=== PATIENT | male | born 1985 | race American Indian/Alaskan Native ===

== ENCOUNTER 2019-07-25 17:26 | Emergency (ER) | payer OTHER ==
--- NOTE | 2019-07-25 17:55 | Event Note ---
ED Screening Note Date of service: 07/25/19 Time: 17:49 ED Screening Note: This is a 34 y.o. M. that presents to the ER with back pain and RUE pain. Patient states he was at work putting in a transmission when the strap broke causing it fall. The patient caught it and held it until coworkers got it off of him. States it landing on right bicep. Reports pain with movement of neck radiating down back. Patient states he was given blood pressure medication 1 year but never followed up. This initial assessment/diagnostic orders/clinical plan/treatment(s) is/are subject to change based on patients health status, clinical progression and re- assessment by fellow clinical providers in the ED. Further treatment and workup at subsequent clinical providers discretion. Patient/guardian urged not to elope from the ED as their condition may be serious if not clinically assessed and managed. Initial orders include: XR C-spine, right humerus, and labs
--- NOTE | 2019-07-25 18:45 | XRay Report ---
RIGHT HUMERUS 3 VIEWS INDICATION / CLINICAL INFORMATION: upper arm pain, injury. COMPARISON: None available. FINDINGS: Negative. Signer Name: Sukhdev Willett MD Signed: 07/25/2019 6:41 PM Workstation Name: [id number]
--- NOTE | 2019-07-25 18:50 | XRay Report ---
CERVICAL SPINE SERIES 4 VIEWS INDICATION: neck pain. COMPARISON: No relevant prior imaging study available. FINDINGS: No acute, displaced fracture or subluxation is seen. No significant prevertebral soft tissue swelling is seen. There are no degenerative changes. IMPRESSION: 1. No acute findings. Signer Name: Marciano Moore MD Signed: 07/25/2019 6:45 PM Workstation Name: [id number]
[2019-07-25] MEDS ORDERED: KETOROLAC 30 MG/1 ML INJ IM ONE (18:55)
[2019-07-25] MEDS ORDERED: oxyCODONE /ACETAMINOPHEN 5-325MG TAB PO ONE (18:55)
[2019-07-25] MEDS ORDERED: amLODIPine 5 MG TAB PO ONE (18:56)
--- NOTE | 2019-07-25 18:56 | Emergency Department Report ---
ED General Adult HPI - General Chief complaint: Back Pain/Injury Stated complaint: IBAN FELL ON PT Time Seen by Provider: 07/25/19 17:49 Source: patient, RN notes reviewed Mode of arrival: Wheelchair Limitations: No Limitations - History of Present Illness Initial comments: This is a 34-year-old gentleman who is not known to this provider previously. The patient is right-hand dominant, up-to-date with tetanus vaccinations. Patient works as an automotive painter. Patient reports that he was at work, working on a transmission. He reports that a supportive strap became loose, and the transmission partially got displaced from the car, the patient had to catch it with his right arm. The transmission slowly landed on his right bicep, and right anterior chest wall. He reports that he was gradually able to keep the transmission supported, his coworkers were able to help him placed in an assisted position. The object itself did not hit his head, neck, or back. He thinks he twisted his back while supporting the transmission. He has paraspinal back pain, right bicep pain, right pectoral pain. He has no midline neck pain. His pain is sharp and throbbing, achy, increases with palpation and decreases with rest. It does not radiate anywhere. He denies other injuries. He denies other complaints. He reports that he has not been on blood pressure medication for about a year. -: Sudden Location: chest, back, right, upper extremity Radiation: non-radiation Quality: aching Consistency: other Improves with: other Worsens with: other - Related Data Previous Rx's Medication Instructions Recorded Last Taken Type Acetaminophen [Non-Aspirin Extra 500 mg PO Q6HR PRN #30 tablet 07/25/19 Unknown Rx Strength] Amlodipine Besylate [Norvasc] 5 mg PO QDAY #30 tablet 07/25/19 Unknown Rx Ibuprofen [Motrin] 600 mg PO Q8H PRN #30 tablet 07/25/19 Unknown Rx Allergies Allergy/AdvReac Type Severity Reaction Status Date / Time No Known Allergies Allergy Unverified 07/25/19 17:35 ED Review of Systems ROS: Stated complaint: IBAN FELL ON PT Other details as noted in HPI Constitutional: denies: fever Eyes: denies: eye discharge ENT: denies: epistaxis Respiratory: denies: wheezing Cardiovascular: denies: syncope Gastrointestinal: denies: abdominal pain Musculoskeletal: back pain, arthralgia, myalgia Skin: other (contusion) Neurological: denies: weakness, numbness, paresthesias, confusion ED Past Medical Hx - Past Medical History Previous Medical History?: No - Surgical History Past Surgical History?: No - Social History Smoking Status: Never Smoker Substance Use Type: None - Medications Home Medications: Home Medications Medication Instructions Recorded Confirmed Last Taken Type Acetaminophen [Non-Aspirin Extra 500 mg PO Q6HR PRN #30 tablet 07/25/19 Unknown Rx Strength] Amlodipine Besylate [Norvasc] 5 mg PO QDAY #30 tablet 07/25/19 Unknown Rx Ibuprofen [Motrin] 600 mg PO Q8H PRN #30 tablet 07/25/19 Unknown Rx ED Physical Exam - General Limitations: No Limitations General appearance: alert, anxious, obese - Head Head exam: Present: atraumatic, normocephalic - Eye Eye exam: Present: normal appearance, EOMI. Absent: nystagmus - ENT ENT exam: Present: normal exam, normal orophraynx, mucous membranes moist, normal external ear exam - Neck Neck exam: Present: normal inspection, full ROM. Absent: tenderness, meningismus - Respiratory Respiratory exam: Present: normal lung sounds bilaterally. Absent: respiratory distress - Cardiovascular Cardiovascular Exam: Present: regular rate, normal rhythm, normal heart sounds. Absent: bradycardia, tachycardia, irregular rhythm, systolic murmur, diastolic murmur, rubs, gallop - GI/Abdominal GI/Abdominal exam: Present: soft. Absent: distended, tenderness, guarding, rigid, pulsatile mass - Rectal Rectal exam: Present: deferred - Extremities Exam Extremities exam: Present: full ROM, other (2+ pulses noted in the bilateral upper, lower extremities. There is no long bone tenderness. Musculoskeletal compartments are soft. The pelvis is stable.). Absent: normal inspection (there is a right upper extremity anterior bicipital ecchymosis. There is a right anterior pectoral muscle ecchymosis.), tenderness, pedal edema, calf tenderness - Back Exam Back exam: Present: normal inspection, full ROM, paraspinal tenderness. Absent: tenderness, CVA tenderness (R), CVA tenderness (L), muscle spasm, vertebral tenderness - Neurological Exam Neurological exam: Present: alert, oriented X3, other (there is no facial droop. The tongue is midline. Extraocular movements are intact bilaterally. Patient speaking in full complete sentences. Shoulder shrug is intact bilaterally. Hearing is grossly intact bilaterally. Visual acuity intact to finger counting and color perception at a close distance. 5/5 strength 4 extremities. Sensation intact to light touch in 4 extremities.). Absent: motor sensory deficit - Psychiatric Psychiatric exam: Present: normal affect, normal mood - Skin Skin exam: Present: warm ED Course Vital Signs 07/25/19 07/25/19 07/25/19 17:46 18:41 18:54 Temperature 98.8 F Pulse Rate 115 H Respiratory 20 20 Rate Blood Pressure 209/132 Blood Pressure 204/131 [Left] O2 Sat by Pulse 96 98 96 Oximetry 07/25/19 19:00 Temperature Pulse Rate 101 H Respiratory 13 Rate Blood Pressure 207/130 Blood Pressure [Left] O2 Sat by Pulse Oximetry - Reevaluation(s) Reevaluation #1: 07/25/19 19:22 Hypertension management is discussed with patient. We discussed diet and lifestyle modifications. However, the patient is interested in starting a medication. We will start low-dose amlodipine. ED Medical Decision Making - Lab Data Vital Signs 07/25/19 07/25/19 07/25/19 17:46 18:41 18:54 Temperature 98.8 F Pulse Rate 115 H Respiratory 20 20 Rate Blood Pressure 209/132 Blood Pressure 204/131 [Left] O2 Sat by Pulse 96 98 96 Oximetry 07/25/19 19:00 Temperature Pulse Rate 101 H Respiratory 13 Rate Blood Pressure 207/130 Blood Pressure [Left] O2 Sat by Pulse Oximetry - Radiology Data Radiology results: report reviewed, image reviewed X-ray of the cervical spine is negative for acute disease. Extremity humerus is negative for acute disease. - Medical Decision Making Differential diagnosis, including not limited to: Elevated blood pressure, hypertension, medication noncompliance, muscular sprain, strain Assessment and plan: 34-year-old gentleman, who caused heavy objects gently in his right bicep. He is afebrile with reassuring vital signs with the exception of hypertension. Tachycardia is resolved to my examination. Hypertension is chronic by history. Please reference the [employer] clinical policy on hypertension which is not acutely symptomatic. Plain films were ordered prior to my personal evaluation, and they were negative for acute disease. His primary and secondary survey are very unremarkable, except as noted. Patient indicates she is going to follow up with his Worker's Compensation provider, as directed by his personal employer. He is counseled that he will likely be sore over the next few days. Return precautions are reviewed. Critical care attestation.: If time is entered above; I have spent that time in minutes in the direct care of this critically ill patient, excluding procedure time. ED Disposition Clinical Impression: Elevated blood pressure reading, Sprain Disposition: TO HOME OR SELFCARE Is pt being admited?: No Does the pt Need Aspirin: No Condition: Stable Additional Instructions: As we discussed, pain typically gets worse before it gets better after blunt trauma. Rest, avoid heavy lifting, and avoid strenuous physical activities. Follow up with a primary care physician, or designated Worker's Compensation physician from your employer for these injuries within the next 3-5 days. Return to the emergency room right away with new, worsening, different symptoms not present on the initial emergency room evaluation. Patient is found to have hypertension and elevated blood pressure in the emergency room. Recommend weight loss, physical activity as tolerated, modification of diet to include plenty of fiber, vegetables, and mean protein. Recommend avoiding sugary drinks, simple carbohydrates. Long-term complications of hypertension and elevated blood pressure include stroke, heart attack, disability, paralysis, loss of quality of life. Therefore, it is very important to closely control blood pressure, both with medication and lifestyle modifications as directed. Referrals: [facility] [Provider Group] - 3-5 Days [facility] [Provider Group] - 3-5 Days
[2019-07-25 20:00] VITALS: BP 187/95
== END 2019-07-25 19:55 | disposition home or self-care (01) ==
LOC: ED 17:26
DX: S33.5XXA Sprain of ligaments of lumbar spine, initial encounter (principal); R03.0 Elevated blood-pressure reading, without diagnosis of hypertension; W20.8XXA Other cause of strike by thrown, projected or falling object, initial encounter; Y93.89 Activity, other specified; Y92.89 Other specified places as the place of occurrence of the external cause; Y99.8 Other external cause status
CPT/HCPCS: 72040; 73060; 96372; 99283; J1885